=== PATIENT | male | born 1960 ===

== ENCOUNTER → 2016-07-03 | Outpatient (CLI) | payer BC ==
--- NOTE | 2016-07-04 14:59 | Diagnostic Imaging Report ---
Indication: COUGH Technique: Two views of the chest Comparison: none Findings: There are degenerative changes of the thoracic spine. Lungs and pleural spaces are clear. Heart size is normal Impression: Negative
== END | disposition home or self-care (01) ==
LOC: RAD 15:22
DX: R05 Cough (principal)
CPT/HCPCS: 71020